=== PATIENT | male | born 1980 | race Caucasian/White ===

== ENCOUNTER 2019-12-02 10:20 | Emergency (ER) | payer OTHER, SELFPAY ==
[~2019-12-02] VITALS: Ht 188 cm; Wt 177.2 kg
--- NOTE | 2019-12-02 10:40 | NUR ---
PT STATES HE STARTED FEELING SOB TODAY DESPITE USE OF INHALER. PT STATES HIS LUNGS FEEL HEAVY
[2019-12-02] MEDS ORDERED: ALBUTEROL/IPRATROPIUM 2.5MG/0.5MG, 3 ML ONE ×2 (11:26→12:08)
[2019-12-02] MEDS ORDERED: ASPIRIN 81 MG TABLET CHEW ONE (11:27)
[2019-12-02] MEDS ORDERED: ASPIRIN 81 MG TABLET CHEW PO ONE (11:30)
[2019-12-02 11:32] LABS: BASOPHILS # (AUTO) 0.04 x10^3/uL (0-0.1); BASOPHILS % (AUTO) 1 % (0-1); EOSINOPHILS # (AUTO) 0.11 x10^3/uL (0-0.4); EOSINOPHILS % (AUTO) 1 % (1-7); LYMPHOCYTES # (AUTO) 2.39 x10^3/uL (1-3.4); LYMPHOCYTES % (AUTO) 29 % (22-44); MD NO; MEAN CORPUSCULAR HEMOGLOBIN 28.8 pg (27.5-34.5); MEAN CORPUSCULAR HGB CONC 32.3 g/dL (33.2-36.2); MEAN PLATELET VOLUME 8.5 fL (7.4-10.4); MONOCYTES # (AUTO) 0.65 x10^3/uL (0.2-0.8); MONOCYTES % (AUTO) 8 % (2-9); NEUTROPHILS # (AUTO) 5.21 x10^3/uL (1.8-6.8); NEUTROPHILS % (AUTO) 62 % (42-75); PLATELET COUNT 273 x10^3/uL (130-400); RED BLOOD COUNT 5.12 x10^6/uL (4.38-5.82); RED CELL DISTRIBUTION WIDTH 13.7 % (9.4-14.8)
[2019-12-02] MEDS: ALBUTEROL/IPRATROPIUM 2.5MG/0.5MG, 3 ML NPPB SCH ×2 (11:34→12:12)
[2019-12-02 11:41] LABS: ALBUMIN 3.4 g/dL (3.4-5.0); ANION GAP 11 mmol/L (5-15); CALCIUM 9.2 mg/dL (8.5-10.1); CHLORIDE 106 mmol/L (98-107); CREATININE 1.06 mg/dL (0.7-1.3)
[2019-12-02 11:44] LABS: TROPONIN I < 0.015 ng/mL (0.000-0.045)
--- NOTE | 2019-12-02 11:46 | NUR ---
PT RECEIVING DUONEB
--- NOTE | 2019-12-02 13:30 | NUR ---
WOB IMPROVED AFTER RECEIVING TWO NEB TREATMENTS. AWAITING RE-EVAL
[2019-12-02 13:45] VITALS: BP 129/38
== END 2019-12-02 14:07 | disposition home or self-care (01) ==
LOC: ED 10:58
DX: J45.901 Unspecified asthma with (acute) exacerbation (principal)
CPT/HCPCS: 36415; 80048; 82040; 84484; 85025; 93005; 94640; 99284

== ENCOUNTER 2020-11-23 11:50 | Emergency (ER) | payer OTHER ==
[~2020-11-23] VITALS: Ht 182.9 cm; Wt 120.0 kg
--- NOTE | 2020-11-23 12:11 | NUR ---
PT ASKING FOR PAIN MEDS BEFORE XRAY
[2020-11-23] MEDS ORDERED: HYDROcodone/APAP 5/325 TABLET PO ONE (12:30)
[2020-11-23] MEDS ORDERED: HYDROcodone/APAP 5/325 TABLET ONE (12:32)
--- NOTE | 2020-11-23 12:44 | NUR ---
AFTER PT AMBULATED TO BATHROOM HE IS NOW C/O PAIN TO R RIBS
[2020-11-23 13:30] VITALS: BP 142/82
== END 2020-11-23 13:53 | disposition home or self-care (01) ==
LOC: ED 12:07
DX: S39.012A Strain of muscle, fascia and tendon of lower back, initial encounter (principal); M51.36 Other intervertebral disc degeneration, lumbar region; V49.09XA Driver injured in collision with other motor vehicles in nontraffic accident, initial encounter; Y93.89 Activity, other specified; Y92.410 Unspecified street and highway as the place of occurrence of the external cause; Y99.8 Other external cause status
CPT/HCPCS: 72110; 99283